=== PATIENT | male | born 1940 | race Caucasian/White ===

== ENCOUNTER 2016-09-21 14:47 | Outpatient (CLI) ==
[2015-10-27 17:01] VITALS: BMI 24.8
--- NOTE | 2016-09-21 15:33 | DI ---
Examination: Five radiographic images of the lumbar spine. Comparison: CT examination performed 09/27/2008. Reason for study: Degenerative disc disease. FINDINGS: There is an intervertebral body graft spacer seen at L5-S1. Moderate to marked degenerat maribell disease is seen throughout the lower thoracic and lumbar spine with loss of intervertebral body disc space height, anterior and posterior osteophyte formation and facet hypertrophy. Vascular calci fications are seen within the abdomen. There is straightening of the lumbar lordotic curve. Impression: 1. Moderate degenerative disc disease is seen throughout the lower thoracic and lumbar spine. No obvious listhesis. If clinical concern exists for radiculopathy, MRI may be performed. If clinica l concern exists for an osseous injury, a CT scan may be performed. 2. Similar appearing intervertebral body graft spacer at L5-S1.
== END 2016-09-21 14:48 | disposition home or self-care (01) ==
LOC: RAD 14:47
PROVIDERS: ATTEND Pain Medicine Interventional Pain Medicine
DX: M47.816 Spondylosis without myelopathy or radiculopathy, lumbar region (principal); M47.817 Spondylosis without myelopathy or radiculopathy, lumbosacral region; M96.1 Postlaminectomy syndrome, not elsewhere classified; M51.36 Other intervertebral disc degeneration, lumbar region; M51.37 Other intervertebral disc degeneration, lumbosacral region

== ENCOUNTER 2016-09-27 14:35 | Outpatient (CLI) ==
[2015-10-27 17:01] VITALS: BMI 24.8
--- NOTE | 2016-09-27 15:45 | CT ---
EXAM: CT left knee without contrast HISTORY: Left knee pain and swelling COMPARISON: None available TECHNIQUE: Multiple axial images of the left knee were obtained without intravenous contrast. Imag es were reformatted in the sagittal and coronal planes FINDINGS: Bone mineralization is normal. No fracture or dislocation identified. Mild tricompartme ntal joint space narrowing and marginal osteophyte formation noted. Subchondral cyst seen in the la teral femoral condyle. No erosive changes identified. Chondrocalcinosis noted in the menisci. Mod erate joint effusion is present. Subcutaneous edema is seen within the deep posterior soft tissues. Atherosclerotic calcifications are present. IMPRESSION: 1. No fracture or dislocation. 2. Osteoarthritis with knee joint effusion. 3. Posterior subcutaneous edema. Correlate for trauma versus infection. 4. Chondrocalcinosis of the menisci. 5. Consider MRI if further evaluation is needed.
== END 2016-09-27 14:36 | disposition home or self-care (01) ==
LOC: RAD 14:35
PROVIDERS: ATTEND Internal Medicine
DX: M25.562 Pain in left knee (principal); M79.89 Other specified soft tissue disorders

== ENCOUNTER 2017-02-11 06:25 | Outpatient (CLI) ==
[2017-02-05 14:31] VITALS: BMI 20.7
--- NOTE | 2017-02-14 10:41 | STRESSMOD ---
Ordering Physician: ANGELA SCHAFER Date of Test: 02/11/17 Medical History: CHEST PAIN, SOB Current Medications: ACIPHEX, NORCO, KEFLEX Physical Findings: S1, S2, NO S3 Resting EKG: SINUS RHYTHM/NO ACUTE CHANGES Target Heart Rate: 124/146 STAGE MPH/GRADE HEART RATE BPM BLOOD PRESSURE mmhg RHYTHM S-T SEGMENT UP DOWN SYMPTOMS,COMMENTS At Rest 55 138/70 SR X NONE 1 1.7/0% 86 140/82 SR X NONE 2 1.7/5% 90 135/70 SR X NONE 3 1.7/10% 125/68 SR X NONE 4 2.5/12% 5 3.4/14% 6 4.2/16% 7 5.18% Immediately after 100 SR X FATIGUE Total Time: 9:36 Maximum Heart Rate Reached: 106 Reason for Termination: FATIGUE 3 MINUTES POST EXERCISE: HR 58 BPM, BP 142/80 MMHG, SR, +/- INTERPRETATION: 98% OXYGEN SATURATION WITH EXERCISE ON ROOM AIR METS 6.0 1. NO EVIDENCE OF ISCHEMIA FROM HEART RATE 55 BPM RESTING TO 106 BPM WITH EXERCISE 2. NO CHEST PAIN OR CHEST DISCOMFORT 3. BLOOD PRESSURE RESPONSE: NORMAL NORMAL LEFT VENTRICULAR CONTRACTILITY--RESTING AND POST EXERCISE MTDD
--- NOTE | 2017-02-14 10:50 | ECHOSTRESS ---
Date of Exam: 02/11/17 Ordering Physician: ANGELA SCHAFER Reason for Echo: CHEST PAIN, SOB, STRESS TEST--NO ISCHEMIA M-Mode Normal Adult Results LV Dimensions Normal Adult Results AoV Opening excursions >1.6 LVEDD-base- 3.5-5.8 Ao root dimensions 2.0-3.7 LVESD-base- 3.1-4.6 L. Atrium dimensions 1.9-3.8 Post. Wall thickness 0.8-1.1 IV septum (thickness) 0.7-1.2 Post. Wall excursion 0.72-1.3 Septal motion Systolic motion R. Ventricular cavity 1.5-2.0 LVEF 60% Paradoxical septal wall motion 2-D: NORMAL LEFT VENTRICULAR CONTRACTILITY--RESTING AND POST EXERCISE M-MODE: MV: AV: TV: PV: CHAMBER SIZE: WALL MOTION: NORMAL LEFT VENTRICULAR CONTRACTILITY--RESTING AND POST EXERCISE PERICARDIUM: INTERPRETATION: 1. NORMAL LEFT VENTRICULAR CONTRACTILITY--RESTING AND POST EXERCISE MTDD
== END 2017-02-11 06:26 | disposition home or self-care (01) ==
LOC: CAR 06:25
PROVIDERS: ATTEND Internal Medicine
DX: R07.9 Chest pain, unspecified (principal); R06.02 Shortness of breath

== ENCOUNTER 2018-07-15 14:51 | Emergency (ER) ==
[2018-07-15 15:04] VITALS: BP 114/76; TEMP 98.8
[2018-07-15] MEDS ORDERED: ZOFRAN ODT PO STA (15:40)
[2018-07-15] MEDS ORDERED: DECADRON 4 MG/ML SDV IM STA (15:40)
[2018-07-15] MEDS ORDERED: MORPHINE 4 MG/ML SYRINGE IM STA (15:40)
--- NOTE | 2018-07-15 15:44 | ED.PDOC ---
General ED Provider: Dr. RENAN OWENS Chief Complaint: Rash Stated Complaint: Patient is a 77 year old male who recently had right knee replacement and had his pain medication changed from hydrocodone to oxycodone. Recently ran out of the oxycodone and went back to hydrocodone but this morning had a refill of oxycodone and took two tablets today. Since taking the medications he has had had urticarial rash with itching all over his skin. Denies any new foods, Soaps detargents or colons. Time Seen by Physician: 15:41 Mode of Arrival: Wheelchair Information Source: Patient Primary Care Provider: ANGELA SCHAFER Nursing and Triage Documentation Reviewed and Agree: Yes Does patient meet sepsis criteria?: No System Inflammatory Response Syndrome: Not Applicable Sepsis Protocol: For patient's 13 years and over: Temp is 96.8 and below OR 101 and greater Pulse >90 BPM Resp >20/minute Acutely Altered Mental Status Are patient's symptoms suggestive of a new infection, such as: -Pneumonia -Skin, Soft Tissue -Endocarditis -UTI -Bone, Joint Infection -Implantable Device -Acute Abdominal Infection -Wound Infection -Meningitis -Blood Stream Catheter Infection -Unknown Skin Complaint Exam - Skin Rash/Itching Complaint/Exam Onset/Duration: 1 day Skin Findings: Present: Urticaria Differential Diagnoses: Contact Dermatitis, Urticaria Review of Systems - Review Of Systems Constitutional: Reports: No symptoms Eyes: Reports: No symptoms Ears, Nose, Mouth, Throat: Reports: No symptoms Respiratory: Reports: No symptoms Cardiac: Reports: No symptoms GI: Reports: No symptoms : Reports: No symptoms Musculoskeletal: Reports: Joint pain (right knee pain and swelling. ) Skin: Reports: Rash Neurological: Reports: Anxiety Endocrine: Reports: No symptoms Hematologic/Lymphatic: Reports: No symptoms All Other Systems: Reviewed and Negative Past Medical History - Past Medical History Previously Healthy: Yes Endocrine: Reports: None Cardiovascular: Reports: None Respiratory: Reports: None Hematological: Reports: None Gastrointestinal: Reports: None Genitourinary: Reports: None Neuro/Psych: Reports: None Musculoskeletal: Reports: None Cancer: Reports: None - Surgical History General Surgical History: Reports: Cholecystectomy, Back Surgery (THREE BACK SURGERIES, GALL BLADDER) - Family History Family History: Reports: Unknown - Social History Smoking Status: Former smoker Hx Substance Use: No Alcohol Screening: None Physical Exam - Physical Exam Appearance: Well-appearing Ill-appearing: Mild Neck: Supple Respiratory: Airway patent, Breath sounds clear, Breath sounds equal, Respirations nonlabored Cardiovascular: RRR GI/: Soft, Nontender, No masses, Bowel sounds normal, No Organomegaly Musculoskeletal: Normal strength, ROM intact, No edema, No calf tenderness Skin: Warm, Dry Psychiatric: Anxious Critical Care Note - Critical Care Note Total Time (mins): 0 Course - Course Orders, Labs, Meds: Orders Category Date Time Status Dexamethasone 4 mg/ml Inj [Decadron 4 mg/ml Sdv] MEDS 07/15/18 15:40 Discontinued 8 mg IM ONCE STA Ketorolac Tromethamine [Toradol] MEDS 07/15/18 15:50 Discontinued 30 mg IM ONCE STA Loratadine [Claritin] MEDS 07/15/18 15:50 Discontinued 10 mg PO ONCE STA Ondansetron [Zofran Odt] MEDS 07/15/18 15:40 Discontinued 4 mg PO ONCE STA Ranitidine HCl [Zantac] MEDS 07/15/18 15:49 Discontinued 300 mg PO ONCE STA Medications Discontinued Medications Generic Name Dose Route Start Last Admin Trade Name Freq PRN Reason Stop Dose Admin Dexamethasone Sodium Phosphate 8 mg 07/15/18 15:40 07/15/18 16:11 Decadron 4 Mg/Ml Sdv IM 07/15/18 15:41 8 mg ONCE STA Administration Ketorolac Tromethamine 30 mg 07/15/18 15:50 07/15/18 16:07 Toradol IM 07/15/18 15:51 30 mg ONCE STA Administration Loratadine 10 mg 07/15/18 15:50 07/15/18 16:22 Claritin PO 07/15/18 15:51 10 mg ONCE STA Administration Ondansetron HCl 4 mg 07/15/18 15:40 07/15/18 16:06 Zofran Odt PO 07/15/18 15:41 4 mg ONCE STA Administration Ranitidine HCl 300 mg 07/15/18 15:49 07/15/18 16:23 Zantac PO 07/15/18 15:50 300 mg ONCE STA Administration Vital Signs: Temp Pulse Resp BP Pulse Ox 07/15/18 14:52 98.8 F 95 H 20 114/76 96 Departure - Departure Time of Disposition: 17:00 Disposition: HOME SELF-CARE Discharge Problem: Urticaria Instructions: Urticaria (ED) Condition: Stable Pt referred to PMD for follow-up: Yes IPMP verified?: No Additional Instructions: Take OTC Zantac 150mg BID x 10 days Take Zyrtec or claritin daily Follow up with PCP in 3 days Stop taking oxycodone May continue to take hydrocodone. Return if worse Allergies/Adverse Reactions: Allergies No Known Allergies Allergy (Verified 02/05/17 10:05) Home Medications: Ambulatory Orders Hydrocodone Bit/Acetaminophen [[place] 7.5-325] 1 each PO QID 02/05/17 Rabeprazole Sodium [Aciphex] 20 mg PO DAILY 02/05/17 Cephalexin [Keflex] 500 mg PO Q8HR #30 capsule 02/07/17 Disposition Discussed With: Patient, Family
[2018-07-15] MEDS ORDERED: ZANTAC PO STA (15:49)
[2018-07-15] MEDS ORDERED: TORADOL IM STA (15:50)
[2018-07-15] MEDS ORDERED: CLARITIN PO STA (15:50)
== END 2018-07-15 17:05 | disposition home or self-care (01) ==
LOC: ED 14:51
DX: R21 Rash and other nonspecific skin eruption (principal); L29.9 Pruritus, unspecified; L50.9 Urticaria, unspecified; M25.561 Pain in right knee; F41.9 Anxiety disorder, unspecified
CPT/HCPCS: 96372; 99283

== ENCOUNTER 2018-08-16 15:00 | Outpatient (RCR) ==
--- NOTE | 2018-07-20 09:58 | RS.OPPTDN ---
Subjective Date of Note: 07/19/18 Visit #: 4 Number of visits approved by Insurance: NA Date of Evaluation: 07/07/18 Payer Source: MEDICARE Treatment Diagnosis: OA R knee Current Subjective/complaints:: Patient reports he felt like he had an increase in mobility of the right LE following last session, but soreness and stiffness the next day. Reports pain continues to limit his ROM and he cannot find a comfortable position to rest. *Precautions: n/a Pain Assessment - Pain Description Pain Location: right knee Pain Description: Tightness, Sharp, Aching Current Pain Intensity: mod to high - Heat/Cryotherapy Treatment: Hot Pack ([id number] to the right LE prior to EX. Patient in supine. ) Interventions - Exercise/Activities/Manual Therapy Exercises/Activities: Assisted PROM of the right knee flexion and extension. Passive heelcord stretch. Ankle pumps and red theraband for resisted ankle df, 3s/10reps. Isometric hip add and ankle inversion with hip IR, both with ball, 3s /10reps each. Quad sets with verbal and tactile cues. Assisted SLR and hip abd. SAQ at diffierent angles and isometric ham set. Isometric hip ext with knee in extension. Assisted heel slides. In sitting, red theraband resisted ham curl , multiple reps. Assisted to [employer] chair for passive stretching into flexion. Total minutes of Exercise: 42mins Manual Therapy: n/a HOME EXERCISE PROGRAM: pt given written HEP including AP, QS, HS, LAQ, hamstring stretch. Heel slides in supine and in sitting. - Objective Findings Observations,measurements,etc.: Passive right knee flexion to 71 degrees when sitting on elevated [employer] chair. - Charges Timed Code Treatment Minutes: 42mins Total Treatment Time: 57mins Procedures billed for this date of service:: HP, EX3 Assessment: Pain limiting progress of right knee ROM. Patient continues to amb with walker with only partial WB on the right due to pain. Patient Education: Body/Joint mechanics, Home Exercise Program, Activity Modification Patient demonstrates compliance with HEP?: Yes Short Term Goals Goal #1: pt transfer sup to/from sit independently, sit to/from stand SBA Goal to be met by: 07/21/18 Progress towards Goal:: Partially Met Goal #2: pt amb with AAD in dept with SBA with no LOB with improved sequencing. Goal to be met by: 07/21/18 Progress towards Goal:: Met Goal #3: pt independent with initial HEP Goal to be met by: 07/21/18 Progress towards Goal:: Progressing Goal #4: Improve R knee ROM flex 90 ext -8 Goal to be met by: 07/21/18 Progress towards Goal:: Progressing Energy Director Goals Goal #1: pt with improved ROM R knee flex 100 ext 0 Goal to be met by: 08/04/18 Goal #2: pt amb functional household distances with AAD independently Goal to be met by: 08/04/18 Progress towards goal: Partially Met Goal #3: pt demonstrate improved strength RLE 4/5 Goal to be met by: 08/04/18 Goal #4: pt demonstrate improved heel strike/toe off gait pattern Goal to be met by: 08/04/18 Plan Dates of Energy Director Goals: 08/04/18 Expiration date of current Insurance Approval:: 08/04/18 PLAN: Progress with ROM and strengthening as tolerated.
--- NOTE | 2018-07-21 16:33 | RS.OPPTDN ---
Subjective Date of Note: 07/21/18 Visit #: 5 Number of visits approved by Insurance: na Date of Evaluation: 07/07/18 Payer Source: MEDICARE Treatment Diagnosis: OA R knee Current Subjective/complaints:: Patient reports pain is high and is limiting his motion and general mobility around his home. *Precautions: n/a Pain Assessment - Pain Description Pain Location: right knee, thigh, and calf Pain Description: Tightness, Throbbing Current Pain Intensity: 6/10 - Heat/Cryotherapy Treatment: Hot Pack ([id number] to the right LE prior to EX. Patient in supine. ) Interventions - Exercise/Activities/Manual Therapy Exercises/Activities: Assisted PROM of the right knee flexion and extension. Ankle pumps and passive heelcord stretch. Red theraband for resisted ankle df, 3s/10reps. Isometric hip add and ankle inversion with hip IR, both with ball, 3s /10reps each. Quad sets with verbal and tactile cues. Assisted SLR and hip abd. Patient assisted to [employer] chair for passive right knee flexion stretching with and without contract/relax. Red theraband resisted ham curl. Assisted heel slides. Sitting ABS LAQ. Walked patient to waiting room following session. He demos improved heel strike and stance phase with right LE, with verbal cueing and use of RW for safety. Total minutes of Exercise: 41mins Manual Therapy: n/a HOME EXERCISE PROGRAM: pt given written HEP including AP, QS, HS, LAQ, hamstring stretch. Heel slides in supine and in sitting. - Objective Findings Observations,measurements,etc.: Active right knee flexion to 81 degrees and passive to 84 degrees (following extensive stretching). - Charges Timed Code Treatment Minutes: 41mins Total Treatment Time: 56mins Procedures billed for this date of service:: HP, EX3h Assessment: Patient continue to report a high pain rating and demos difficulty with ROM exercise, but is able to increase right knee flexion today. Patient Education: Body/Joint mechanics, Home Exercise Program, Home Safety Patient demonstrates compliance with HEP?: Yes Short Term Goals Goal #1: pt transfer sup to/from sit independently, sit to/from stand SBA Goal to be met by: 07/21/18 Progress towards Goal:: Partially Met Goal #2: pt amb with AAD in dept with SBA with no LOB with improved sequencing. Goal to be met by: 07/21/18 Progress towards Goal:: Met Goal #3: pt independent with initial HEP Goal to be met by: 07/21/18 Progress towards Goal:: Progressing Goal #4: Improve R knee ROM flex 90 ext -8 Goal to be met by: 07/21/18 Progress towards Goal:: Progressing Retirement Goals Goal #1: pt with improved ROM R knee flex 100 ext 0 Goal to be met by: 08/04/18 Progress towards goal: Progressing Goal #2: pt amb functional household distances with AAD independently Goal to be met by: 08/04/18 Progress towards goal: Partially Met Goal #3: pt demonstrate improved strength RLE 4/5 Goal to be met by: 08/04/18 Goal #4: pt demonstrate improved heel strike/toe off gait pattern Goal to be met by: 08/04/18 Plan Dates of Retirement Goals: 08/04/18 Expiration date of current Insurance Approval:: 08/04/18 PLAN: Progress with ROM and strengthening of the right LE to increase patients safety and functional activity level.
--- NOTE | 2018-07-25 16:17 | RS.OPPTDN ---
Subjective Date of Note: 07/25/18 Visit #: 6 Number of visits approved by Insurance: NA Date of Evaluation: 07/07/18 Payer Source: MEDICARE Treatment Diagnosis: OA R knee Current Subjective/complaints:: Patient enters clnic with minimal R knee flexion as he walks with R/W.He reports he has a difficulty finding a position at rest to reduce the knee pain.This NEGATIVE ASSEMBLER recommended for him to elevate and ice the R knee more if needed at the end of the day.If he uses heat ,to apply it to the quads ,not directly on the R knee. *Precautions: n/a Pain Assessment - Pain Description Pain Location: R knee Pain Description: Tightness, Dull, Aching Current Pain Intensity: 7-8/10 - Heat/Cryotherapy Treatment: Hot Pack (15 mins.to quads prior to exercises ) Interventions - Exercise/Activities/Manual Therapy Exercises/Activities: 45 mins. total of multiple reps of ankle pumps,quad sets, heelslides,SAQ's;SLR's 5 reps. at a time ,contract-relax to quads,passive knee extension on bolster.AP glides ,prior to assessing the ROM . AROM with gravity assisted stretch initially to 85 degrees,then with assisted stretch in supine and sitting to 91 degrees.Passive extension -10 initially ,improved to -7 degrees. Total minutes of Exercise: 45 Manual Therapy: n/a Total minutes of Manual Therapy: 0 HOME EXERCISE PROGRAM: pt given written HEP including AP, QS, HS, LAQ, hamstring stretch. Heel slides in supine and in sitting. - Charges Timed Code Treatment Minutes: 45 Total Treatment Time: 60 Procedures billed for this date of service:: hp,ex 3 Assessment: Patient still requires several reps. of stretches to increase the flexion ,but has less muscle guarding present as the exercises progress.He needs cues to flex the R knee with ambulation ,corrects this well.He has moderate warmth /edema present in the R knee.He has good rehab potential . Patient Education: Education of diagnosis, Body/Joint mechanics, Home Exercise Program, Home Safety, Activity Modification, Education of Plan of Care Patient demonstrates compliance with HEP?: Yes Short Term Goals Goal #1: pt transfer sup to/from sit independently, sit to/from stand SBA Goal to be met by: 07/21/18 Progress towards Goal:: Partially Met Goal #2: pt amb with AAD in dept with SBA with no LOB with improved sequencing. Goal to be met by: 07/21/18 Progress towards Goal:: Met Goal #3: pt independent with initial HEP Goal to be met by: 07/21/18 Progress towards Goal:: Progressing Goal #4: Improve R knee ROM flex 90 ext -8 Goal to be met by: 07/21/18 (90-91 ,but not consistent yet) Progress towards Goal:: Progressing Cloud Systems Architect Goals Goal #1: pt with improved ROM R knee flex 100 ext 0 Goal to be met by: 08/04/18 Progress towards goal: Progressing Goal #2: pt amb functional household distances with AAD independently Goal to be met by: 08/04/18 Progress towards goal: Partially Met Goal #3: pt demonstrate improved strength RLE 4/5 Goal to be met by: 08/04/18 Goal #4: pt demonstrate improved heel strike/toe off gait pattern Goal to be met by: 08/04/18 Plan Dates of Cloud Systems Architect Goals: 08/04/18 Expiration date of current Insurance Approval:: NA PLAN: Cont. skilled PT to achieve maximum motion /strength in the R knee for safe ADL's.
--- NOTE | 2018-07-26 16:14 | RS.OPPTDN ---
Subjective Date of Note: 07/26/18 Visit #: 7 Number of visits approved by Insurance: NA Date of Evaluation: 07/07/18 Payer Source: MEDICARE Treatment Diagnosis: OA R knee Current Subjective/complaints:: Patient reports increased ROM right knee with last treatment session, but states he had a bad night. States pain was elevated , he had difficulty sleeping, and had to take additional pain medication. *Precautions: n/a Pain Assessment - Pain Description Pain Location: Right knee Pain Description: Tightness, Sharp, Throbbing, Aching Current Pain Intensity: mod to high Interventions - Exercise/Activities/Manual Therapy Exercises/Activities: Patient assisted to elevated [employer] chair for PROM, contract-relax, and resisted ham curl with right theraband. Ankle pumps, heelcord stretch, and SAQ with 3#. Isometric ankle inversion, and bilateral LAQ with ball between feet. Assisted to stationary bike and performs full revolutions with constant assist, 5mins total. Leg press 15# short range, 30reps. Total minutes of Exercise: 42mins Manual Therapy: n/a HOME EXERCISE PROGRAM: pt given written HEP including AP, QS, HS, LAQ, hamstring stretch. Heel slides in supine and in sitting. - Objective Findings Observations,measurements,etc.: In sitting, 90 degrees flexion, passive to 92 degrees. - Charges Timed Code Treatment Minutes: 42mins Total Treatment Time: 42mins Procedures billed for this date of service:: EX3 Assessment: Slow but steady progress with right knee flexion. Pain and swelling continue to limit motion and ambulation. Patient Education: Home Exercise Program Patient demonstrates compliance with HEP?: Yes Short Term Goals Goal #1: pt transfer sup to/from sit independently, sit to/from stand SBA Goal to be met by: 07/21/18 Progress towards Goal:: Partially Met Goal #2: pt amb with AAD in dept with SBA with no LOB with improved sequencing. Goal to be met by: 07/21/18 Progress towards Goal:: Met Goal #3: pt independent with initial HEP Goal to be met by: 07/21/18 Progress towards Goal:: Progressing Goal #4: Improve R knee ROM flex 90 ext -8 Goal to be met by: 07/21/18 (90-91 ,but not consistent yet) Progress towards Goal:: Progressing Data Analysis Intern Goals Goal #1: pt with improved ROM R knee flex 100 ext 0 Goal to be met by: 08/04/18 Progress towards goal: Progressing Goal #2: pt amb functional household distances with AAD independently Goal to be met by: 08/04/18 Progress towards goal: Partially Met Goal #3: pt demonstrate improved strength RLE 4/5 Goal to be met by: 08/04/18 Goal #4: pt demonstrate improved heel strike/toe off gait pattern Goal to be met by: 08/04/18 Plan Dates of Data Analysis Intern Goals: 08/04/18 Expiration date of current Insurance Approval:: 08/04/18 PLAN: Progress with strengthening and ROM of the right LE to increase ambulation and functional activity level.
--- NOTE | 2018-07-28 16:05 | RS.CXNS ---
Date of scheduled appointment: 07/28/18 Type: Cancel (Patient calls to cancel due to being sick. Reschedules for next week.)
--- NOTE | 2018-07-31 16:19 | RS.OPPTDN ---
Subjective Date of Note: 07/31/18 Visit #: 8 Number of visits approved by Insurance: NA Date of Evaluation: 07/07/18 Payer Source: MEDICARE Treatment Diagnosis: OA R knee Current Subjective/complaints:: Patient reports continued stiffness right knee, but states flexibility is better. *Precautions: n/a Pain Assessment - Pain Description Pain Location: Right knee joint Pain Description: Tightness, Aching Current Pain Intensity: mod - Heat/Cryotherapy Treatment: Hot Pack ([id number] to the right LE prior to EX. Patient in supine. ) Interventions - Exercise/Activities/Manual Therapy Exercises/Activities: PROM of the right knee with focus on end range flexion stretching. Ankle pumps, ham sets, heelcord stretch, and SAQ. Isometric ankle inversion with hip IR and isometric hip add, both with ball. In sitting, passive flexion. Assisted to stationary bike full revolutions, 4mins. Then patient continues independently on bike additional 4mins. Leg press 15# short range, 4s/10reps. Total minutes of Exercise: 38mins/42mins Manual Therapy: n/a HOME EXERCISE PROGRAM: pt given written HEP including AP, QS, HS, LAQ, hamstring stretch. Heel slides in supine and in sitting. - Charges Timed Code Treatment Minutes: 38mins Total Treatment Time: 57mins Procedures billed for this date of service:: HP, EX3 Assessment: Patient needs aggressive passive stretching to increase right knee ROM. Patient Education: Body/Joint mechanics, Home Exercise Program, Home Safety, Activity Modification Patient demonstrates compliance with HEP?: Yes Short Term Goals Goal #1: pt transfer sup to/from sit independently, sit to/from stand SBA Goal to be met by: 07/21/18 Progress towards Goal:: Partially Met Goal #2: pt amb with AAD in dept with SBA with no LOB with improved sequencing. Goal to be met by: 07/21/18 Progress towards Goal:: Met Goal #3: pt independent with initial HEP Goal to be met by: 07/21/18 Progress towards Goal:: Progressing Goal #4: Improve R knee ROM flex 90 ext -8 Goal to be met by: 07/21/18 (90-91 ,but not consistent yet) Progress towards Goal:: Progressing Sales Estimator Goals Goal #1: pt with improved ROM R knee flex 100 ext 0 Goal to be met by: 08/04/18 Progress towards goal: Progressing Goal #2: pt amb functional household distances with AAD independently Goal to be met by: 08/04/18 Progress towards goal: Partially Met Goal #3: pt demonstrate improved strength RLE 4/5 Goal to be met by: 08/04/18 Goal #4: pt demonstrate improved heel strike/toe off gait pattern Goal to be met by: 08/04/18 Plan Dates of Sales Estimator Goals: 08/04/18 Expiration date of current Insurance Approval:: 08/04/18 PLAN: Progress with strengthening and ROM of the right LE this week to increase patients functional activity level.
--- NOTE | 2018-08-01 16:27 | RS.OPPTDN ---
Subjective Date of Note: 08/01/18 Visit #: 9 Number of visits approved by Insurance: NA Date of Evaluation: 07/07/18 Payer Source: MEDICARE Treatment Diagnosis: OA R knee Current Subjective/complaints:: Patient reports walking with cane today. States he has some discomfort with weight-bearing on right LE. States he continues to have difficultly with pain at night when trying to get comfortable. *Precautions: n/a Pain Assessment - Pain Description Pain Location: right knee Pain Description: Tightness, Dull, Aching Current Pain Intensity: mod - Heat/Cryotherapy Treatment: Hot Pack ([id number] to the right knee prior to EX. Patient in supine. ) Interventions - Exercise/Activities/Manual Therapy Exercises/Activities: PROM of the right knee with focus on end range flexion stretching. Ankle pumps, ham sets, heelcord stretch. Added 3# to SAQ, 3s/ 10reps. Added 1 1/2# to SLR, 3s/10reps. Isometric ankle inversion with hip IR and isometric hip add, both with ball. Red theraband resisted right ankle df and ham curl. In sitting, passive flexion and red theraband for resisted ham curl. Assisted to stationary bike full revolutions, 4mins. Then patient continues independently on bike additional 5mins(not included in direct time). Back to mat table to passive stretching of hamstrings, heelcords, and knee flexion. Patient education on use of cane and heel/toe sequence with ambulation. Total minutes of Exercise: 39mins/44mins Manual Therapy: n/a HOME EXERCISE PROGRAM: pt given written HEP including AP, QS, HS, LAQ, hamstring stretch. Heel slides in supine and in sitting. - Objective Findings Observations,measurements,etc.: Passive right knee flexion to 107 degrees. Extension to -6 degrees. - Charges Timed Code Treatment Minutes: 39mins Total Treatment Time: 59mins Procedures billed for this date of service:: HP, EX3 Assessment: Patient progressing with ROM, strengthening, and ambulation with cane. Patient Education: Body/Joint mechanics, Home Exercise Program, Home Safety, Activity Modification Patient demonstrates compliance with HEP?: Yes Short Term Goals Goal #1: pt transfer sup to/from sit independently, sit to/from stand SBA Goal to be met by: 07/21/18 (100%) Progress towards Goal:: Met Goal #2: pt amb with AAD in dept with SBA with no LOB with improved sequencing. Goal to be met by: 07/21/18 (100%) Progress towards Goal:: Met Goal #3: pt independent with initial HEP Goal to be met by: 07/21/18 (50%) Progress towards Goal:: Progressing Goal #4: Improve R knee ROM flex 90 ext -8 Goal to be met by: 07/21/18 (100%) Progress towards Goal:: Met Comments:: Flexion 90 degrees, extension -6 degrees Retirement Goals Goal #1: pt with improved ROM R knee flex 100 ext 0 Goal to be met by: 08/04/18 Progress towards goal: Progressing Goal #2: pt amb functional household distances with AAD independently Goal to be met by: 08/04/18 (not consistent) Progress towards goal: Progressing Goal #3: pt demonstrate improved strength RLE 4/5 Goal to be met by: 08/04/18 Progress towards goal: Progressing Goal #4: pt demonstrate improved heel strike/toe off gait pattern Goal to be met by: 08/04/18 Progress towards goal: Progressing Plan Dates of Retirement Goals: 08/04/18 Expiration date of current Insurance Approval:: 08/04/18 PLAN: Progress with strengthening and ROM to increase patients functional activity level.
--- NOTE | 2018-08-03 16:01 | RS.OPPTDN ---
Subjective Date of Note: 08/03/18 Visit #: 10 Number of visits approved by Insurance: NA Date of Evaluation: 07/07/18 Payer Source: MEDICARE Treatment Diagnosis: OA R knee Current Subjective/complaints:: Patient reports he is pleased with progress but is limited with ADL's and amb due to pain and stiffness right knee,. States he is doing more at home but is very limited. *Precautions: n/a Pain Assessment - Pain Description Pain Location: right knee Pain Description: Tightness, Aching Current Pain Intensity: mild to mod Interventions - Exercise/Activities/Manual Therapy Exercises/Activities: PROM of the right knee with focus on end range flexion stretching. Ankle pumps, ham sets, heelcord stretch. Increased to 4# to SAQ, 3s /10reps. SLR and hip abd, 3s/10reps each. Isometric ankle inversion with hip IR and isometric hip add, both with ball. Red theraband resisted right ankle df and ham curl. In sitting, passive flexion and red theraband for resisted ham curl. Assisted to stationary bike full revolutions, 10mins(not included in direct time). Back to mat table to passive stretching of hamstrings, heelcords , and knee flexion. Total minutes of Exercise: 28mins/38mins Manual Therapy: n/a HOME EXERCISE PROGRAM: pt given written HEP including AP, QS, HS, LAQ, hamstring stretch. Heel slides in supine and in sitting. - Objective Findings Observations,measurements,etc.: Passive right knee flexion 107 degrees. Active extension -6 degrees. Patient increased score on LE Functional scale to 27/80 or 66.25% (was 5/80 or 94% on Eval) - Charges Timed Code Treatment Minutes: 28mins Total Treatment Time: 38mins Procedures billed for this date of service:: EX2 Assessment: Patient has made significant progress with ROM, strengthening, and ambulation. He continues to need therapy to improve his gait pattern and functional activity level. Patient Education: Body/Joint mechanics, Home Exercise Program, Home Safety, Activity Modification Comments: Patient education of correction of foot placement, stride length, and increase knee flexion with ambulation. Patient demonstrates compliance with HEP?: Yes Short Term Goals Goal #1: pt transfer sup to/from sit independently, sit to/from stand SBA Goal to be met by: 07/21/18 (100%) Progress towards Goal:: Met Goal #2: pt amb with AAD in dept with SBA with no LOB with improved sequencing. Goal to be met by: 07/21/18 (100%) Progress towards Goal:: Met Goal #3: pt independent with initial HEP Goal to be met by: 07/21/18 (50%) Progress towards Goal:: Progressing Goal #4: Improve R knee ROM flex 90 ext -8 Goal to be met by: 07/21/18 (100%) Progress towards Goal:: Met Railroad Shop Inspector Goals Goal #1: pt with improved ROM R knee flex 100 ext 0 Goal to be met by: 08/04/18 (60%) Progress towards goal: Progressing Goal #2: pt amb functional household distances with AAD independently Goal to be met by: 08/04/18 Progress towards goal: Met Goal #3: pt demonstrate improved strength RLE 4/5 Goal to be met by: 08/04/18 Progress towards goal: Progressing Goal #4: pt demonstrate improved heel strike/toe off gait pattern Goal to be met by: 08/04/18 Progress towards goal: Progressing Plan Dates of Railroad Shop Inspector Goals: 08/04/18 Expiration date of current Insurance Approval:: 08/04/18 PLAN: Patient going for follow-up appointment on Tuesday08/07/18. Continuation of therapy orders are anticipated due to patients progress.
--- NOTE | 2018-08-03 16:18 | RS.PTSUM ---
Progress Note/Summary Date of Note: 08/03/18 Date of Evaluation: 07/07/18 Number of Visits: 10 Number of visits approved by Insurance: n/a Reporting Period for this Progress Note: 07/07/18-08/03/18 Current Complaints/Gains: pt reports progress with ROM and walking. Pt has progressed to cane, c/o pain and stiffness R knee and calf. States he can perform some light activities however is limited with several ADL's and recreational activities. Objective Measurements/Presentation: PROM R knee flex 107, ext -6. AROM R knee flex 92-94. pt is independent with SLR. pt demonstrates decreased stance phase on RLE. Limited knee flex and decreased heel strike/toe off gait pattern. Pt has also shown improvement on LE functional scale improved from on eval to . G Codes: n/a Source of G Code Score: n/a - Short Term Goals Goal #1: pt transfer sup to/from sit independently, sit to/from stand SBA Goal to be met by: 07/21/18 (100%) Progress towards Goal:: Met Goal #2: pt amb with AAD in dept with SBA with no LOB with improved sequencing. Goal to be met by: 07/21/18 (100%) Progress towards Goal:: Met Goal #3: pt independent with initial HEP Goal to be met by: 08/11/18 (50%) Progress towards Goal:: Progressing Goal #4: Improve R knee ROM flex 90 ext -8 Goal to be met by: 07/21/18 (100%) Progress towards Goal:: Met - Yeast Fermentation Attendant Goals Goal #1: pt with improved ROM R knee flex 100 ext 0 Goal to be met by: 08/18/18 Progress towards goal: Progressing Goal #2: pt amb functional household distances with AAD independently Goal to be met by: 08/18/18 (not consistent) Progress towards goal: Progressing Goal #3: pt demonstrate improved strength RLE 4/5 Goal to be met by: 08/18/18 Progress towards goal: Progressing Goal #4: pt demonstrate improved heel strike/toe off gait pattern Goal to be met by: 08/18/18 Progress towards goal: Progressing - Assessment Assessment of Improvement/Progress: pt has met STG 1, 2, 4 and progressing toward remaining goals. pt has made significant improvements with ROM as well as gait. pt progressed from amb short distances with rwx with assist to amb independently with cane. pt also has improved with balance and decreased edema. Feel pt would benefit from continued PT for therex to continue to improve ROM, strength as well as balance. Further visits requested to continue 2-3x a week for 2 weeks. Summary: Patient has made progress towards goals., Patient demonstrates potential to gain increased function with therapy, Maximum potential has yet to be attained. - Plan Plan: Will request continuation of therapy sessions. Frequency: 2-3x a week Duration: 2 weeks Dates of Yeast Fermentation Attendant Goals: 08/18/18 Expiration date of current Insurance Approval:: n/a
--- NOTE | 2018-08-08 14:54 | RS.OPPTDN ---
Subjective Date of Note: 08/08/18 Visit #: 11 Number of visits approved by Insurance: NA Date of Evaluation: 07/07/18 Payer Source: MEDICARE Treatment Diagnosis: OA R knee Current Subjective/complaints:: Patient reports physician was pleased with right knee flexion, but wants him to work on passive stretches to get full extension. *Precautions: n/a Pain Assessment - Pain Description Pain Location: right knee Pain Description: Tightness, Aching Current Pain Intensity: no pain at rest Worst Pain Intensity: mod to high with end range stretch - Heat/Cryotherapy Treatment: Hot Pack ([id number] to the right LE prior to EX. Patient in supine. ) Interventions - Exercise/Activities/Manual Therapy Exercises/Activities: PROM of the right knee with focus on end range flexion stretching. Then passive extension stretch with ankle elevated. Ham sets, heelcord stretch. 4# to SAQ, 3s/10reps. SLR and hip abd, 2s/10reps each. Isometric ankle inversion with hip IR and isometric hip add, both with ball. Red theraband resisted right ankle df and ham curl. In sitting, passive flexion , passive extension, and red theraband for resisted ham curl. Assisted to stationary bike full revolutions, 8mins(not included in direct time). Leg press increased to 30#, 30reps slow pace. Total minutes of Exercise: 38mins/46mins Manual Therapy: n/a HOME EXERCISE PROGRAM: pt given written HEP including AP, QS, HS, LAQ, hamstring stretch. Heel slides in supine and in sitting. - Charges Timed Code Treatment Minutes: 38mins Total Treatment Time: 61mins Procedures billed for this date of service:: HP, EX3 Short Term Goals Goal #1: pt transfer sup to/from sit independently, sit to/from stand SBA Goal to be met by: 07/21/18 (100%) Progress towards Goal:: Met Goal #2: pt amb with AAD in dept with SBA with no LOB with improved sequencing. Goal to be met by: 07/21/18 (100%) Progress towards Goal:: Met Goal #3: pt independent with initial HEP Goal to be met by: 08/11/18 (50%) Progress towards Goal:: Progressing Goal #4: Improve R knee ROM flex 90 ext -8 Goal to be met by: 07/21/18 (100%) Progress towards Goal:: Met Custodial Goals Goal #1: pt with improved ROM R knee flex 100 ext 0 Goal to be met by: 08/18/18 Progress towards goal: Progressing Goal #2: pt amb functional household distances with AAD independently Goal to be met by: 08/18/18 (not consistent) Progress towards goal: Progressing Goal #3: pt demonstrate improved strength RLE 4/5 Goal to be met by: 08/18/18 Progress towards goal: Progressing Goal #4: pt demonstrate improved heel strike/toe off gait pattern Goal to be met by: 08/18/18 Progress towards goal: Progressing Plan Dates of Custodial Goals: 08/18/18 Expiration date of current Insurance Approval:: 08/18/18 PLAN: Progress strength and ROM of the right LE to improve gait and increase functional activity level.
--- NOTE | 2018-08-10 15:11 | RS.OPPTDN ---
Subjective Date of Note: 08/10/18 Visit #: 12 Number of visits approved by Insurance: NA Date of Evaluation: 07/07/18 Payer Source: MEDICARE Treatment Diagnosis: OA R knee Current Subjective/complaints:: Patient reports increased stiffness in right knee today. States he had pain that limited his rest last night, may be due to cold weather. Reports feeling better after treatment and states he is walking short distances without cane. *Precautions: n/a Pain Assessment - Pain Description Pain Location: right knee, lower leg Pain Description: Tightness, Aching Current Pain Intensity: mod - Heat/Cryotherapy Treatment: Hot Pack ([id number] to the right LE prior to EX. Patient in supine. ) Interventions - Exercise/Activities/Manual Therapy Exercises/Activities: PROM of the right knee with focus on end range flexion stretching. Then passive extension stretch with ankle elevated. Ham sets, heelcord stretch. 4# to SAQ, 3s/10reps. SLR and hip abd, 2s/10reps each. Isometric ankle inversion with hip IR and isometric hip add, both with ball. Red theraband resisted right ankle df. In sitting, began passive extension hangs. 3# LAQ and red theraband for ham curl. Assisted to stationary bike full revolutions, 10mins(not included in direct time). Leg press 30#, 30reps slow pace. Then ankle pf/df 30#, 20reps. Discussion of gait pattern and to work on heel strike/toe-off. Total minutes of Exercise: 34mins /44mins Manual Therapy: n/a HOME EXERCISE PROGRAM: pt given written HEP including AP, QS, HS, LAQ, hamstring stretch. Heel slides in supine and in sitting. - Charges Timed Code Treatment Minutes: 34mins Total Treatment Time: 59mins Procedures billed for this date of service:: HP, EX2 Assessment: Patient with increased joint pain and stiffness today. Patient Education: Body/Joint mechanics, Home Exercise Program Comments: Patient instructed in proper position for passive extension hangs with stool or at coffee table. Patient demonstrates compliance with HEP?: Yes Short Term Goals Goal #1: pt transfer sup to/from sit independently, sit to/from stand SBA Goal to be met by: 07/21/18 (100%) Progress towards Goal:: Met Goal #2: pt amb with AAD in dept with SBA with no LOB with improved sequencing. Goal to be met by: 07/21/18 (100%) Progress towards Goal:: Met Goal #3: pt independent with initial HEP Goal to be met by: 08/11/18 (70%) Progress towards Goal:: Progressing Goal #4: Improve R knee ROM flex 90 ext -8 Goal to be met by: 07/21/18 (100%) Progress towards Goal:: Met Power Mule Operator Goals Goal #1: pt with improved ROM R knee flex 100 ext 0 Goal to be met by: 08/18/18 Progress towards goal: Progressing Goal #2: pt amb functional household distances with AAD independently Goal to be met by: 08/18/18 (not consistent) Progress towards goal: Progressing Goal #3: pt demonstrate improved strength RLE 4/5 Goal to be met by: 08/18/18 Progress towards goal: Progressing Goal #4: pt demonstrate improved heel strike/toe off gait pattern Goal to be met by: 08/18/18 Progress towards goal: Progressing Plan Dates of Power Mule Operator Goals: 08/18/18 Expiration date of current Insurance Approval:: 08/18/18 PLAN: Progress with ROM and strengthening of the right LE to increase patients functional gait and activity level.
--- NOTE | 2018-08-11 16:31 | RS.OPPTDN ---
Subjective Date of Note: 08/11/18 Visit #: 13 Number of visits approved by Insurance: NA Date of Evaluation: 07/07/18 Payer Source: MEDICARE Treatment Diagnosis: OA R knee Current Subjective/complaints:: Patient reports stiffness right knee, but states he is walking better. Reports pain with end range stretching. *Precautions: n/a Pain Assessment - Pain Description Pain Location: right knee Pain Description: Tightness, Aching Pain Description: soreness Current Pain Intensity: mod - Heat/Cryotherapy Treatment: Hot Pack ([id number] to the right knee joint and hamstrings prior to EX. Patient in supine. ) Interventions - Exercise/Activities/Manual Therapy Exercises/Activities: PROM of the right knee with focus on end range flexion stretching. Then passive extension stretch with ankle elevated. Ham sets, heelcord stretch. 5# to SAQ, 3s/10reps. SLR and hip abd, 2s/10reps each. Isometric ankle inversion with hip IR and isometric hip add, both with ball. Green theraband resisted right ankle df. In sitting, green theraband for ham curls. Increased to 4# LAQ. Assisted to stationary bike full revolutions, 7mins (not included in direct time). Leg press 30#, 30reps slow pace. Then ankle pf/ df 30#, 30reps. Ended with additional stretching and measurements taken. Total minutes of Exercise: [id number]/47mins Manual Therapy: n/a HOME EXERCISE PROGRAM: pt given written HEP including AP, QS, HS, LAQ, hamstring stretch. Heel slides in supine and in sitting. - Objective Findings Observations,measurements,etc.: Passive right knee flexion to 117 degrees with aggressive stretch. Active ext to -2 degrees and passive to neutral. - Charges Timed Code Treatment Minutes: 40mins Total Treatment Time: 62mins Procedures billed for this date of service:: HP, EX3 Assessment: Patient progressing with ROM and strengthening. He is increasing his activity level at home and working on gait pattern. Patient Education: Body/Joint mechanics, Home Exercise Program Patient demonstrates compliance with HEP?: Yes Short Term Goals Goal #1: pt transfer sup to/from sit independently, sit to/from stand SBA Goal to be met by: 07/21/18 (100%) Progress towards Goal:: Met Goal #2: pt amb with AAD in dept with SBA with no LOB with improved sequencing. Goal to be met by: 07/21/18 (100%) Progress towards Goal:: Met Goal #3: pt independent with initial HEP Goal to be met by: 08/11/18 (100%) Progress towards Goal:: Met Goal #4: Improve R knee ROM flex 90 ext -8 Goal to be met by: 07/21/18 (100%) Progress towards Goal:: Met Longterm Goals Goal #1: pt with improved ROM R knee flex 100 ext 0 Goal to be met by: 08/18/18 Progress towards goal: Progressing Goal #2: pt amb functional household distances with AAD independently Goal to be met by: 08/18/18 (not consistent) Progress towards goal: Met Comments: walking with cane Goal #3: pt demonstrate improved strength RLE 4/5 Goal to be met by: 08/18/18 Progress towards goal: Progressing Goal #4: pt demonstrate improved heel strike/toe off gait pattern Goal to be met by: 08/18/18 Progress towards goal: Progressing Plan Dates of Longterm Goals: 08/18/18 Expiration date of current Insurance Approval:: 08/18/18 PLAN: Progress with ROM, strength, and functional ambulation.
--- NOTE | 2018-08-14 16:29 | RS.OPPTDN ---
Subjective Date of Note: 08/14/18 Visit #: 14 Number of visits approved by Insurance: NA Date of Evaluation: 07/07/18 Payer Source: MEDICARE Treatment Diagnosis: OA R knee Current Subjective/complaints:: Patient reports difficulty with pain in the right knee at night. States this is limiting his sleep by half or more. Also, he has difficulty with extending his knee when walking so he continues to use a cane. *Precautions: n/a Pain Assessment - Pain Description Pain Location: right knee, calf and ankle Pain Description: Tightness, Throbbing, Aching Other Comments regarding Pain:: Reports throbbing in right knee at night preventing sleep. - Heat/Cryotherapy Treatment: Hot Pack ([id number] to the right LE prior to EX. Patient in supine. ) Interventions - Exercise/Activities/Manual Therapy Exercises/Activities: PROM of the right knee with focus on end range flexion stretching. Then passive extension stretch with ankle elevated. Ham sets, heelcord stretch. Increased to 7# to SAQ, 3s/10reps. SLR added 2#, 2s/10reps each. Isometric ankle inversion with hip IR and isometric hip add, both with ball. Green theraband resisted right ankle df and hamstring, 3s/10reps each. In sitting, green theraband for ham curls. Stationary bike full revolutions, 5mins(not included in direct time). Leg press increased to 45#, 30reps slow pace. Total minutes of Exercise: 42mins/47mins Manual Therapy: n/a HOME EXERCISE PROGRAM: pt given written HEP including AP, QS, HS, LAQ, hamstring stretch. Heel slides in supine and in sitting. - Charges Timed Code Treatment Minutes: 42mins Total Treatment Time: 62mins Procedures billed for this date of service:: HP, EX3 Assessment: Patient having difficulty with pain that limits rest and his functional ambulation. Short Term Goals Goal #1: pt transfer sup to/from sit independently, sit to/from stand SBA Goal to be met by: 07/21/18 (100%) Progress towards Goal:: Met Goal #2: pt amb with AAD in dept with SBA with no LOB with improved sequencing. Goal to be met by: 07/21/18 (100%) Progress towards Goal:: Met Goal #3: pt independent with initial HEP Goal to be met by: 08/11/18 (100%) Progress towards Goal:: Met Goal #4: Improve R knee ROM flex 90 ext -8 Goal to be met by: 07/21/18 (100%) Progress towards Goal:: Met Care Home Goals Goal #1: pt with improved ROM R knee flex 100 ext 0 Goal to be met by: 08/18/18 Progress towards goal: Progressing Goal #2: pt amb functional household distances with AAD independently Goal to be met by: 08/18/18 (not consistent) Progress towards goal: Met Goal #3: pt demonstrate improved strength RLE 4/5 Goal to be met by: 08/18/18 Progress towards goal: Progressing Goal #4: pt demonstrate improved heel strike/toe off gait pattern Goal to be met by: 08/18/18 Progress towards goal: Progressing Plan Dates of Care Home Goals: 08/18/18 Expiration date of current Insurance Approval:: 08/18/18 PLAN: Progress to reduce pain and swelling, and increase patients functional activity and gait.
--- NOTE | 2018-08-16 16:26 | RS.OPPTDN ---
Subjective Date of Note: 08/16/18 Visit #: 15 Number of visits approved by Insurance: NA Date of Evaluation: 07/07/18 Payer Source: MEDICARE Treatment Diagnosis: OA R knee Current Subjective/complaints:: Patient reports increased soreness in the right LE today. States he got a stationary bike and has been using it for short intervals. *Precautions: n/a Pain Assessment - Pain Description Pain Location: Right knee, upper lateral thigh, and anterior ankle joint Pain Description: Tightness, Aching Current Pain Intensity: 5-6/10 - Heat/Cryotherapy Treatment: Hot Pack ([id number] to the right LE prior to EX. supine. ) Interventions - Exercise/Activities/Manual Therapy Exercises/Activities: PROM of the right knee with focus on end range flexion stretching. Then passive extension stretch with ankle elevated. Ham sets, heelcord stretch. 7# to SAQ, 3s/10reps. SLR 2s/10reps. Isometric ankle inversion with hip IR and isometric hip add, both with ball. Green theraband resisted right ankle df and hamstring, 3s/10reps each. In sitting, green theraband for ham curls and passive extension with foot on stool and manual pressure above the knee. Leg press increased to 45#, 35reps slow pace. Back to sitting at mat table for passive stretching of the right knee into extension. Total minutes of Exercise: 42mins Manual Therapy: n/a HOME EXERCISE PROGRAM: pt given written HEP including AP, QS, HS, LAQ, hamstring stretch. Heel slides in supine and in sitting. - Charges Timed Code Treatment Minutes: 42mins Total Treatment Time: 62mins Procedures billed for this date of service:: HP, EX3 Assessment: Patient continues to have pain and tightness that limit his mobility. He continues to use cane to reduce pressure on the right LE. Patient Education: Home Exercise Program Patient demonstrates compliance with HEP?: Yes Short Term Goals Goal #1: pt transfer sup to/from sit independently, sit to/from stand SBA Goal to be met by: 07/21/18 (100%) Progress towards Goal:: Met Goal #2: pt amb with AAD in dept with SBA with no LOB with improved sequencing. Goal to be met by: 07/21/18 (100%) Progress towards Goal:: Met Goal #3: pt independent with initial HEP Goal to be met by: 08/11/18 (100%) Progress towards Goal:: Met Goal #4: Improve R knee ROM flex 90 ext -8 Goal to be met by: 07/21/18 (100%) Progress towards Goal:: Met Longterm Goals Goal #1: pt with improved ROM R knee flex 100 ext 0 Goal to be met by: 08/18/18 Progress towards goal: Progressing Goal #2: pt amb functional household distances with AAD independently Goal to be met by: 08/18/18 (not consistent) Progress towards goal: Met Goal #3: pt demonstrate improved strength RLE 4/5 Goal to be met by: 08/18/18 Progress towards goal: Progressing Goal #4: pt demonstrate improved heel strike/toe off gait pattern Goal to be met by: 08/18/18 Progress towards goal: Progressing Plan Dates of Longterm Goals: 08/18/18 Expiration date of current Insurance Approval:: 08/18/18 PLAN: Progress with ROM and strengthening of the right LE to increase functional activity level.
== END 2018-08-17 23:59 ==
PROVIDERS: ATTEND Orthopaedic Surgery
DX: Z96.651 Presence of right artificial knee joint (principal); Z47.1 Aftercare following joint replacement surgery; M25.561 Pain in right knee; M25.461 Effusion, right knee; M25.661 Stiffness of right knee, not elsewhere classified; M62.81 Muscle weakness (generalized)

== ENCOUNTER 2018-08-25 15:00 | Outpatient (RCR) ==
--- NOTE | 2018-08-18 16:32 | RS.OPPTDN ---
Subjective Date of Note: 08/18/18 Visit #: 16 Number of visits approved by Insurance: NA Date of Evaluation: 07/07/18 Payer Source: MEDICARE Treatment Diagnosis: OA R knee Current Subjective/complaints:: Patient reports difficulty with walking on right LE more than short distanaces today. States he is putting more weight on his cane. States he is working on stationary bike he now has at home. *Precautions: n/a Pain Assessment - Pain Description Pain Location: right knee Pain Description: Tightness, Dull, Aching Current Pain Intensity: 6/10 - Heat/Cryotherapy Treatment: Hot Pack ([id number] to the right knee joint and along the hamstrings prior to EX. ) Interventions - Exercise/Activities/Manual Therapy Exercises/Activities: PROM of the right knee with focus on end range flexion stretching. Then passive extension stretch with ankle elevated and manual pressures. Ham sets, heelcord stretch. 7# to SAQ, 3s/10reps. SLR 2# 2s/ 10reps. Isometric ankle inversion with hip IR and isometric hip add, both with ball. Green theraband resisted right ankle df and hamstring. In sitting, green theraband for ham curls and passive extension with foot on stool and manual pressure above the knee. Leg press decreased to 30#, 25reps slow pace. Total minutes of Exercise: 30mins Manual Therapy: Manual distraction and joint mobs during passive stretching. Total minutes of Manual Therapy: 5mins HOME EXERCISE PROGRAM: pt given written HEP including AP, QS, HS, LAQ, hamstring stretch. Heel slides in supine and in sitting. - Objective Findings Observations,measurements,etc.: Patients passive right knee flexion increased from 104degrees to 115 degrees with passive stretch, manual distraction, and gentle joint mobs. - Charges Timed Code Treatment Minutes: 35mins Total Treatment Time: 55mins Procedures billed for this date of service:: HP, EX2 Assessment: Patient with increase pain and stiffness today. He continues to work on HEP and has purchased a stationary bike in attempt to progress. Patient is benefitting from skilled manual therapy and assisted exercise. Patient Education: Body/Joint mechanics, Activity Modification Patient demonstrates compliance with HEP?: Yes Short Term Goals Goal #1: pt transfer sup to/from sit independently, sit to/from stand SBA Goal to be met by: 07/21/18 (100%) Progress towards Goal:: Met Goal #2: pt amb with AAD in dept with SBA with no LOB with improved sequencing. Goal to be met by: 07/21/18 (100%) Progress towards Goal:: Met Goal #3: pt independent with initial HEP Goal to be met by: 08/11/18 (100%) Progress towards Goal:: Met Goal #4: Improve R knee ROM flex 90 ext -8 Goal to be met by: 07/21/18 (100%) Progress towards Goal:: Met [employer] Apprentice Goals Goal #1: pt with improved ROM R knee flex 100 ext 0 Goal to be met by: 08/25/18 Progress towards goal: Progressing Goal #2: pt amb functional household distances with AAD independently Goal to be met by: 08/18/18 (not consistent) Progress towards goal: Met Goal #3: pt demonstrate improved strength RLE 4/5 Goal to be met by: 08/26/18 Progress towards goal: Progressing Goal #4: pt demonstrate improved heel strike/toe off gait pattern Goal to be met by: 08/25/18 Progress towards goal: Progressing Plan Dates of [facility]fp Goals: 08/25/18 Expiration date of current Insurance Approval:: 08/25/18 PLAN: LTG dates extended one week as we have current orders from physician to conitnue therapy. Will progress strength to increase patient independence with all functional activities.
--- NOTE | 2018-08-22 14:09 | RS.OPPTDN ---
Subjective Date of Note: 08/21/18 Visit #: 17 Number of visits approved by Insurance: NA Date of Evaluation: 07/07/18 Payer Source: MEDICARE Treatment Diagnosis: OA R knee Current Subjective/complaints:: Patient reports he is discouraged today. States right knee pain seems worse and he is afraid he is regressing. Reports an increase in mobility following treatment. *Precautions: n/a Pain Assessment - Pain Description Pain Location: right knee, upper thigh, lower leg and ankle Pain Description: Aching Current Pain Intensity: 0 at rest Worst Pain Intensity: mod with activity - Heat/Cryotherapy Treatment: Hot Pack ([id number] to the right LE prior to EX. Patient in supine. ) Interventions - Exercise/Activities/Manual Therapy Exercises/Activities: Stationary bike 4mins. PROM of the right knee. Then passive extension stretch with ankle elevated and manual pressures. Ham sets, heelcord stretch. 7# to SAQ, 3s/10reps. SLR 2 1/2# 2s/10reps. Isometric ankle inversion with hip IR and isometric hip add, both with ball. Green theraband for resisted hip add and abd, 2s/10reps each. Sitting on [employer] chair for passive flexion and LAQ with 4#. In sitting, green theraband for ham curls and passive extension with foot elevated. Leg press 30#, 25reps slow pace. Total minutes of Exercise: 40mins/44mins Manual Therapy: Manual distraction and joint mobs during passive stretching. HOME EXERCISE PROGRAM: pt given written HEP including AP, QS, HS, LAQ, hamstring stretch. Heel slides in supine and in sitting. - Charges Timed Code Treatment Minutes: 40mins Total Treatment Time: 59mins Procedures billed for this date of service:: HP, EX3 Assessment: Patient with increased pain, swelling, and joint tightness today. He demos increased flexibility with exercise and assisted stretching. Patient Education: Home Exercise Program Patient demonstrates compliance with HEP?: Yes Short Term Goals Goal #1: pt transfer sup to/from sit independently, sit to/from stand SBA Goal to be met by: 07/21/18 (100%) Progress towards Goal:: Met Goal #2: pt amb with AAD in dept with SBA with no LOB with improved sequencing. Goal to be met by: 07/21/18 (100%) Progress towards Goal:: Met Goal #3: pt independent with initial HEP Goal to be met by: 08/11/18 (100%) Progress towards Goal:: Met Goal #4: Improve R knee ROM flex 90 ext -8 Goal to be met by: 07/21/18 (100%) Progress towards Goal:: Met Prison Goals Goal #1: pt with improved ROM R knee flex 100 ext 0 Goal to be met by: 08/25/18 Progress towards goal: Progressing Goal #2: pt amb functional household distances with AAD independently Goal to be met by: 08/18/18 (not consistent) Progress towards goal: Met Goal #3: pt demonstrate improved strength RLE 4/5 Goal to be met by: 08/26/18 Progress towards goal: Progressing Goal #4: pt demonstrate improved heel strike/toe off gait pattern Goal to be met by: 08/25/18 Progress towards goal: Progressing Plan Dates of Prison Goals: 08/25/18 Expiration date of current Insurance Approval:: 08/25/18 PLAN: Progress with strength and ROM this week, working to increase patients functional gait and activity level.
--- NOTE | 2018-08-30 14:56 | RS.OPPTDN ---
Subjective Date of Note: 08/25/18 Visit #: 18 Number of visits approved by Insurance: NA Date of Evaluation: 07/07/18 Payer Source: MEDICARE Treatment Diagnosis: OA R knee Current Subjective/complaints:: Patient reports he is pleased with progress. States he has discontinued cane this week and had good days. Reports stiffness in the morning but is working on his stationary bike several times a day, which helps reduce pain and stiffness. Reports he is now walking community distances without cane. *Precautions: n/a Pain Assessment - Pain Description Pain Location: right knee Current Pain Intensity: mild Other Comments regarding Pain:: Reports no pain at rest, painful at end range with stretching. Interventions - Exercise/Activities/Manual Therapy Exercises/Activities: Stationary bike 4mins. PROM of the right knee. Then passive extension stretch with ankle elevated and manual pressures. Ham sets, heelcord stretch. 7# to SAQ, 3s/10reps. SLR 2# 2s/10reps. Isometric ankle inversion with hip IR and isometric hip add, both with ball. Green theraband for resisted hip add and abd, 2s/10reps each. Sitting on [employer] chair for passive flexion and LAQ with 4#. In sitting, green theraband for ham curls and passive extension with foot elevated. Leg press 30#, 30reps slow pace. Total minutes of Exercise: 44mins Manual Therapy: Manual distraction and joint mobs during passive stretching. HOME EXERCISE PROGRAM: pt given written HEP including AP, QS, HS, LAQ, hamstring stretch. Heel slides in supine and in sitting. - Objective Findings Observations,measurements,etc.: Active right knee flexion 114 degrees and passive to 122 degrees. Extension to neutral. - Charges Timed Code Treatment Minutes: 44mins Total Treatment Time: 48mins Procedures billed for this date of service:: EX3 Assessment: Patient has met all treatment goals and is ambulating without AD. He will continue HEP following discharge. Patient Education: Home Exercise Program, Education of Plan of Care Comments: Discussed and finalized HEP. Patient demonstrates compliance with HEP?: Yes Short Term Goals Goal #1: pt transfer sup to/from sit independently, sit to/from stand SBA Goal to be met by: 07/21/18 (100%) Progress towards Goal:: Met Goal #2: pt amb with AAD in dept with SBA with no LOB with improved sequencing. Goal to be met by: 07/21/18 (100%) Progress towards Goal:: Met Goal #3: pt independent with initial HEP Goal to be met by: 08/11/18 (100%) Progress towards Goal:: Met Goal #4: Improve R knee ROM flex 90 ext -8 Goal to be met by: 07/21/18 (100%) Progress towards Goal:: Met Permit Agent Goals Goal #1: pt with improved ROM R knee flex 100 ext 0 Goal to be met by: 08/25/18 Progress towards goal: Met Goal #2: pt amb functional household distances with AAD independently Goal to be met by: 08/18/18 (not consistent) Progress towards goal: Met Goal #3: pt demonstrate improved strength RLE 4/5 Goal to be met by: 08/26/18 Progress towards goal: Met Goal #4: pt demonstrate improved heel strike/toe off gait pattern Goal to be met by: 08/25/18 Progress towards goal: Met Plan Dates of Permit Agent Goals: 08/25/18 Expiration date of current Insurance Approval:: 08/25/18 PLAN: Discharge with HEP.
--- NOTE | 2018-09-01 09:27 | RS.OPPTDC ---
Date of Discharge: 08/25/18 Date of Evaluation: 07/07/18 Number of Visits: 18 Treatment Diagnosis: OA R knee Current Level of Function: AROM R knee flex 117 PROM flex 122, ext to 0 with AAROM. R quad strength 4+/5, hamstring 5/5. pt is independent with amb home and community with only slight gait deviation without AD. Current Complaints/Gains: pt now amb without cane in community. pt reports he is using stationary bike several times per day. pt reports he is back to doing daily activities in home and garage. Functional Outcome Measure - G Codes & Severity Modifier G Codes & Modifier: n/a Source of G Code score: n/a Observation - Observation Posture: Forward Head, Rounded Shoulders Handedness: Right Gait - Gait Pattern Gait Comments: pt amb without AD Interventions - Exercise/Activities/Manual Therapy Exercises/Activities: n/a Manual Therapy: n/a HOME EXERCISE PROGRAM: pt given written HEP including AP, QS, HS, LAQ, hamstring stretch. Heel slides in supine and in sitting. - Charges Timed Code Treatment Minutes: n/a Total Treatment Time: n/a Procedures billed for this date of service:: n/a Assessment Assessment: pt is independent with HEP and amb without cane. pt has made significant improvement with pain as well as ROM. pt has met all goals. Patient Education: Home Exercise Program, Education of Plan of Care Rehab Potential: Good Short Term Goals Goal #1: pt transfer sup to/from sit independently, sit to/from stand SBA Goal to be met by: 07/21/18 (100%) Progress towards Goal:: Met Goal #2: pt amb with AAD in dept with SBA with no LOB with improved sequencing. Goal to be met by: 07/21/18 (100%) Progress towards Goal:: Met Goal #3: pt independent with initial HEP Goal to be met by: 08/11/18 (100%) Progress towards Goal:: Met Goal #4: Improve R knee ROM flex 90 ext -8 Goal to be met by: 07/21/18 (100%) Progress towards Goal:: Met Senior Care Goals Goal #1: pt with improved ROM R knee flex 100 ext 0 Goal to be met by: 08/25/18 Progress towards goal: Met Goal #2: pt amb functional household distances with AAD independently Goal to be met by: 08/18/18 (not consistent) Progress towards goal: Met Goal #3: pt demonstrate improved strength RLE 4/5 Goal to be met by: 08/26/18 Progress towards goal: Met Goal #4: pt demonstrate improved heel strike/toe off gait pattern Goal to be met by: 08/25/18 Progress towards goal: Met Plan Reason for Discharge:: All Goals Met
== END 2018-09-14 23:59 ==
PROVIDERS: ATTEND Orthopaedic Surgery
DX: Z47.1 Aftercare following joint replacement surgery (principal); Z96.651 Presence of right artificial knee joint; M17.11 Unilateral primary osteoarthritis, right knee; M25.561 Pain in right knee; M25.461 Effusion, right knee; M25.661 Stiffness of right knee, not elsewhere classified; M62.81 Muscle weakness (generalized)